=== PATIENT | male | born 1950 | race Caucasian/White ===

== ENCOUNTER 2019-01-27 13:09 | Outpatient (CLI) | payer MEDICARE, BC, SELFPAY ==
--- NOTE | 2019-01-27 13:00 | DI.RAD_ITS ---
SYMPTOMS/DIAGNOSIS: RT SHOULDER PAIN, S/P ROTATOR CUFF REPAIR, M25.511 RIGHT SHOULDER: Multiple views. There are mild hypertrophic changes seen at the acromioclavicular joint and the greater tuberosity. The glenohumeral joint appears well maintained. The bones are intact and normally mineralized. The soft tissues are unremarkable. IMPRESSION: Degenerative changes seen of the right shoulder as described.
== END 2019-01-27 13:29 ==
PROVIDERS: PCP Emergency Medicine; Visit Provider Family Medicine
DX: M25.511 Pain in right shoulder (principal); M19.011 Primary osteoarthritis, right shoulder
CPT/HCPCS: 73030

== ENCOUNTER → 2019-02-18 09:21 | Outpatient (BNVA) | payer MEDICARE, BC, SELFPAY | PROVIDERS: PCP Emergency Medicine; Referring Provider Emergency Medicine; Visit Provider Student in an Organized Health Care Education/Training Program | DX: M25.511 Pain in right shoulder (principal) | CPT/HCPCS: 20610; 99213; 99214; J1040 ==

== ENCOUNTER → 2019-04-06 10:27 | Outpatient (BNVA) | payer MEDICARE, BC, SELFPAY | PROVIDERS: PCP Emergency Medicine; Referring Provider Emergency Medicine; Visit Provider Student in an Organized Health Care Education/Training Program | DX: M75.81 Other shoulder lesions, right shoulder (principal) | CPT/HCPCS: 99212; 99213 ==

== ENCOUNTER → 2019-05-19 13:09 | Outpatient (BNVA) | payer MEDICARE, BC, SELFPAY | PROVIDERS: PCP Emergency Medicine; Visit Provider Nurse Practitioner Primary Care | DX: R55 Syncope and collapse (principal); I44.2 Atrioventricular block, complete; Z45.018 Encounter for adjustment and management of other part of cardiac pacemaker | CPT/HCPCS: 93288; 99203; 99214 ==

== ENCOUNTER 2019-10-20 10:33 | Emergency (ER) | payer MEDICARE, BC, SELFPAY ==
[2019-10-20] VITALS (33 sets, daily range): BP systolic 133–155; BP diastolic 76–94; PULSE 59–76; RESP 0–25; TEMP 37.1; O2SAT 94–98
--- NOTE | 2019-10-20 10:48 | DI.RAD_ITS ---
EXAM: XR CHEST 2V PA LATERAL INDICATION: chest pressure. COMPARISON: CHEST 2 VIEWS PA,LAT from 12/24/2014 XR shoulder RT complete 2+V from 01/27/2019 TECHNIQUE: 2D digital imaging was performed. FINDINGS: The heart size is normal. The pacemaker is now seen. The lungs appear clear. No infiltrate, effus ion or pneumothorax is seen. There are flowing osteophytes in the thoracic spine. No compression fr actures are seen. IMPRESSION: No acute abnormality.
--- NOTE | 2019-10-20 10:48 | W.ED.GENAD ---
Discharge Plan Disposition Patient Disposition: HOME Condition: Good Discharge Details Chief Complaint: Chest Pain Clinical Impression: Chest pain Primary Care Provider: Lusi Krause ED Provider: Jack Sun Home Meds and New Rx's Prescriptions: No Action mupirocin 2 % ointment 1 applic TP TID Qty: 22 RF: 0 vitamin B complex [B-Complex] 1 EACH tablet 1 ea PO DAILY Qty: 1 RF: 0 omega 4-hyu-rkc-fish oil 1 EACH capsule 1 ea PO DAILY Qty: 1 RF: 0 multivitamin [Daily Multi-Vitamin] 1 EACH tablet 1 ea PO 2 x a week RF: 0 aspirin 81 MG tablet,chewable 81 mg PO DAILY RF: 0 cholecalciferol (vitamin D3) [Vitamin D3] 2,000 UNIT capsule 2,000 unit PO DAILY RF: 0 ascorbic acid (vitamin C) [Vitamin C] 500 MG tablet 500 mg PO DAILY RF: 0 lovastatin 20 mg tablet 20 mg PO DAILY Qty: 90 RF: 3 methylphenidate HCl [Ritalin] 10 mg tablet 10 mg PO ONCE MDD 10 mh Qty: 30 RF: 0 Discharge Instructions Instructions: Chest Pain (ED) Additional Instructions: At this time there is no evidence of a heart attack that we can see from our testing. If your symptoms return please take careful note of when they occur, and what seems to bring it up on, including take a careful diary of your food. We will contact your primary care provider to help set up a stress test. If you notice any worsening of your symptoms, or any new symptoms such as vomiting, diarrhea, fever, chills, shortness of breath, chest pain, numbness, weakness, or fainting , please return immediately to the emergency department for reevaluation. Please follow up with your primary care provider as soon as possible for reassessment and reevaluation. As always, it was a pleasure participating in your medical care today. Referrals: Luis Krause, DO [Primary Care Provider] - Medical Decision Making This is a pleasant 69-year-old male with a past medical history of high cholesterol, pacemaker, who takes daily aspirin, who presents today for chest pain. Over the last 2 to 3 months he has had a few episodes of brief 10 seconds of chest pressure which is unrelated to exertion or activity. Symptoms resolve on its own. No pleuritic components. No red flags for PE. No history of cardiac disease. He was seen by his PCP earlier today, EKG was unremarkable aside from normal repolarization. He was sent to the ED for further assessment. Currently the patient remains asymptomatic and has had no current chest pain or shortness of breath. EKG shows mild repolarization which is unchanged from prior EKG in 12/24/2014. Patient also had a normal stress test at the [facility] on 08/27/2018. Review of previous [facility] and [facility] records indicate that he did have sick sinus syndrome in the past with pauses up to 5 seconds which was the reason for his pacemaker. Currently the patient appears clinically well, vital signs are stable. We will perform serial troponins, evaluate for significant cardiac abnormality. No clinical evidence of PE, signs and symptoms clinically inconsistent with dissection. Of note his symptoms may be associated with Textor's twinge/precordial catch syndrome, or alternatively the symptoms that he is feeling is his sick sinus syndrome taking place and then being recovered by his pacemaker. We will evaluate for acute life-threatening abnormality and reassess. 1:13 PM Patient's laboratory work-up has returned, no significant abnormalities. White count normal, CBC normal, electrolytes, renal function, and troponin normal. Chest x-ray unremarkable. proBNP normal. Serial EKGs consistent and unchanged from prior EKGs. Signs and symptoms at this time appear clinically inconsistent with ACS. We are pending serial troponin. Portable limited bedside ultrasound demonstrates good cardiac contractility throughout at this time, no evidence of pericardial effusion or tamponade. 2:12 PM Serial EKG and serial troponins are normal. Patient remains asymptomatic here. Signs and symptoms at this time are clinically inconsistent with ACS. Again I do suspect potential precordial catch syndrome, potentially mild gastritis, versus potential chronic dysrhythmia for which she has a pacemaker. At this time with no syncope, exertional chest pain, EKG changes compared to his chronic EKGs, or other abnormalities in addition to the normal serial troponins I do feel that he is safe for discharge with close follow-up. We will schedule an outpatient exercise stress test. I have contacted Dr. Krause and discussed this with him. Will recommend follow-up with his cardiology clinical consultant on an outpatient basis. I have extensively reviewed the treatment plan and discharge instructions with the patient and their family. I have addressed all patient concerns at this time. The patient and family was made aware of what symptoms to monitor for that would warrant a return to the emergency department. Discussed the plan with the patient and family, they demonstrate verbal understanding and agreement with our assessment and plan at this time. EKG 10: 40 Rate 69, NC 194, QTc 433, QRS 90, sinus rhythm, inverted T waves in V1, normal less than 1 mm of repolarization in the anterior lateral leads, review of prior EKG from earlier today and from 12/24/2014 demonstrates no changes, and consistent findings. EKG 13: 07 Rate 60, intervals normal, sinus rhythm, inverted T wave in V1, placenta millimeter repolarization in the anterior lateral leads. Consistent with prior EKGs both from today and in previous years. No Q waves. No evidence of STEMI. No evidence of delta wave, or epsilon wave. FINDINGS: The heart size is normal. The pacemaker is now seen. The lungs appear clear. No infiltrate, effusion or pneumothorax is seen. There are flowing osteophytes in the thoracic spine. No compression fractures are seen. IMPRESSION: No acute abnormality. HPI General Date/Time Provider Initiated Documentation: 10/20/19 10:36. 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 Patient states that for the last 2 to 3 months he has intermittent chest pain which she describes as a pressure-like sensation. It lasts for 10 seconds, it is in his left chest. He has no syncope associated with these events. They are unchanged and unrelated to exertion or rest. He denies any radiation to the arm neck or shoulders. He denies any tearing sensation. Today with the most recent episode that occurred just while he was driving. He denies any pleuritic chest pain. Denies PE risk factors such as recent long car rides, immobilization, recent surgery, prior history of DVT or PE, family history of PE or DVT, morbid obesity, exogenous estrogen and smoking, hemoptysis, history of cancer. He was seen by his primary care provider Dr. Roberson earlier this morning, EKG was unremarkable aside for normal repolarization. No other abnormalities. After contacting the ED by Dr. Roberson the patient was then transferred here for further assessment evaluation. Upon his arrival to the family doctor's office as well as here he has had no chest pain or other symptoms. Currently he feels well, denies any other complaints. Related Data Home Medications Medication Instructions Recorded Confirmed omega 0-gmy-ogx-fish oil 1 ea PO DAILY #1 07/17/16 10/20/19 vitamin B complex [B Complex] 1 ea PO DAILY #1 07/17/16 10/20/19 aspirin 81 mg PO DAILY tab-cap 01/04/17 10/20/19 cholecalciferol (vitamin D3) 2,000 unit PO DAILY 01/04/17 10/20/19 [Vitamin D3] multivitamin [Multi-Vitamin Daily] 1 ea PO 2 x a week 01/04/17 10/20/19 ascorbic acid (vitamin C) [Vitamin 500 mg PO DAILY 11/26/17 10/20/19 C] mupirocin 2 % topical ointment 1 applic TP TID #22 gm 05/29/19 10/20/19 lovastatin 20 mg tablet 20 mg PO DAILY #90 tab-cap 06/02/19 10/20/19 methylphenidate HCl 10 mg tablet 10 mg PO ONCE #30 tab MDD 10 mh 09/23/19 10/20/19 Previous Rx's Medication Instructions Recorded mupirocin 2 % topical ointment 1 applic TP TID #22 gm 05/29/19 lovastatin 20 mg tablet 20 mg PO DAILY #90 tab-cap 06/02/19 methylphenidate HCl 10 mg tablet 10 mg PO ONCE #30 tab MDD 10 mh 09/23/19 Allergies Allergy/AdvReac Type Severity Reaction Status Date / Time duck feathers Allergy Intermediate Uncoded 10/20/19 10:45 General Stated Complaint: Chest Pain ISIDRO: 2 Review of Systems All systems reviewed & are unremarkable except as noted in HPI and below PFSH Social History Smoking/Tobacco Use Status: Never Alcohol Intake: current Alcohol Intake frequency: holidays/special occasions only Drug use: Never Substance use type: does not use Pets and animals: No Duration: 30-45 minutes/day Frequency: 1-2 times per week Amanda/Druze: [employer] Special amanda needs: No Exam Narrative Exam Narrative: 1.Const: Well-nourished, Well-developed, appearing stated age 2.Eyes: PERRL, no conjunctival injection, and symmetrical lids. 3.ENT: Atraumatic external nose and ears. Moist MM. Neck: Symmetric, trachea midline, No thyromegaly. 4.CVS: +S1/S2, No murmurs or gallops. Peripheral pulses 2+ and equal in all extremities. Brisk capillary refill in all extremities. Pacemaker in place, no redness or tenderness over pacemaker site. No reproducible chest pain. 5.RESP: Unlabored respiratory effort. Clear to auscultation bilaterally. No wheezes rales or rhonchi 6.GI: Soft, Nontender/Nondistended, No hepatosplenomegaly. No guarding or rebound. 7.MSK: Normocephalic/Atraumatic, Extremities w/o deformity or ttp No cyanosis or clubbing, Normal movement of all extremities 8.Skin: Warm, Dry. No rashes or lesions. 9.Neuro: transportation director II-XII grossly intact. Sensation grossly intact, no focal neurologic deficits. 10.Psych: (AAO) x3. Appropriate mood and affect Course Vital Signs Vital signs: Vital Signs Temperature 37.1 C 10/20/19 10:39 Pulse 72 10/20/19 10:39 Respiratory Rate 20 10/20/19 10:39 Blood Pressure 149/85 H 10/20/19 10:39 Pulse Oximetry 98 10/20/19 10:39 Temperature 37.1 C 10/20/19 10:39 Temperature Source Skin 10/20/19 10:39 Pulse 72 10/20/19 10:39 Respiratory Rate 20 10/20/19 10:39 Respiratory Effort Non-Labored 10/20/19 10:46 Blood Pressure 149/85 H 10/20/19 10:39 Blood Pressure Position Sitting 10/20/19 10:39 Pulse Oximetry 98 10/20/19 10:39 Oxygen Delivery Method Room Air 10/20/19 10:39 Oxygen Flow Rate 0 10/20/19 10:39 Pain Level 0 10/20/19 10:39 Lab/Test Results Lab/Test Results: Laboratory Tests Range/Units 10/20/19 10:37 D-Dimer Cancelled
[2019-10-20 10:59] LABS: Abs Immature Grans 0.01 k/cumm (0.0-0.09); Absolute Basophil Count 0.01 k/cumm (0.0-0.2); Absolute Eosinophil Count 0.19 k/cumm (0.0-0.7); Absolute Lymphocyte Count 1.21 k/cumm (1.2-3.4); Absolute Monocyte Count 0.69 k/cumm (0.11-0.7); Absolute Neutrophil Count 4.46 k/cumm (1.2-6.7); Basophils % 0.2; Eosinophils % 2.9; HGB 15.3 g/dL (13.5-17.5); Immature Grans % 0.2; Lymphocytes % 18.4; Mean Corp. HGB Concentration 33.3 g/dL (32.0-36.0); Mean Corpuscular Hemoglobin 29.3 pg (27.0-33.0); Mean Platelet Volume 10.8 fL (8.0-11.0); Monocytes % 10.5; Neutrophils % 67.8; Platelet Count 160 x1000/uL (130-400); RBC 5.23 m/cumm (4.50-6.00); RBC Distribution Width 13.1 % (11.8-14.1); White Blood Cell Count 6.57 k/cumm (4.4-10.8)
[2019-10-20 11:10] LABS: PTT Activated 21.7 sec (21.0-31.4); Prothrombin Time 10.4 sec (9.3-11.0)
[2019-10-20 11:31] LABS: ALT 38 U/L (16-63); AST 22 U/L (15-37); Alkaline Phosphatase 75 U/L (46-116); Anion Gap 6.9 mmol/L (3-11); BUN 14 mg/dL (7-18); Bilirubin, Total 1.1 mg/dL (0.2-1.0); CO2 30.1 mmol/L (21.0-32.0); CREATININE 0.83 mg/dL (0.70-1.30); Calcium 9.1 mg/dL (8.5-10.1); Chloride 103 mmol/L (98-107); Glucose 93 mg/dL (70-100); NT-proBNP 79 pg/mL; Potassium 4.5 mmol/L (3.5-5.1); Sodium 140 mmol/L (136-145); Total Protein 7.3 g/dL (6.4-8.2)
[2019-10-20 11:51] LABS: Troponin I < 0.05 ng/mL (0.00-0.06)
[2019-10-20 14:04] LABS: Troponin I < 0.05 ng/Ml (<0.06)
== END 2019-10-20 14:36 | disposition home or self-care (01) ==
PROVIDERS: Emergency Provider Student in an Organized Health Care Education/Training Program; PCP Emergency Medicine
DX: R07.9 Chest pain, unspecified (principal); Z79.82 Long term (current) use of aspirin; Z95.0 Presence of cardiac pacemaker; Z87.891 Personal history of nicotine dependence
CPT/HCPCS: 36415; 80053; 93005; 96374; 99285; 71046; 83880; 84484; 85025; 85379; 85610; 85730; 93010

== ENCOUNTER 2019-10-27 00:08 | Outpatient (CLI) | payer MEDICARE, BC, SELFPAY ==
--- NOTE | 2019-10-27 06:51 | DI.NM_ITS ---
APPROVED REPORT Exam: Pharmacologic Patient Location: Out-Patient Room/Bed: Stress Nurse: Holly Frederick RN BMI: 2.95 Baseline Rhythm: First Degree Heart Block, minimal ST elevation leads V1, V2, V3, V4; negative T wave in lead V1. Indications: Patient presented to ER on 10/20/19 with intermittent midsternal chest pressure (10 seco nds) with increasing frequency of the last 2 months. He states lately he gets chest pain approximatel y 3 times per week. Chest pain resolves on its own and is unrelated to exertion or activity. Medical History Cardiac Medications: Aspirin, Lovastatin. Allergies: Duck Feathers Cardiac Risk Factors: FHX of CAD, Hyperlipidemia Previous Cardiac Procedures: Pacemaker Exercise History: Physically active Lung Sounds: Clear to auscultation Heart Sounds: Regular Stress Test Details Test: Pharmacologic stress testing performed using 0.4 mg of regadenoson per 5 mL given IV over 10 s econds. Nuclear Acquisition: Stress Tc-99m/Stress Tc-99m 1 day Rest Isotope: Tc-99m Sestamibi. Dose: 10.8 Date: 10/27/2019 Injection Time: 0810 Stress Isotope: Tc-99m Sestamibi. Dose: 30.8 Date: 10/27/2019 Injection Time: 1015 HR Max Heart Rate (APMHR): 150 bpm Resting HR Supine: 68 bpm Target HR (85% APMHR): 127 bpm Max HR Achieved: 93 bpm % of APMHR: 62 HR response to stress: Normal HR response to stress BP Resting BP Supine: 158/96 mmHg Max BP: 160/90 mmHg BP response to stress: Normal blood pressure response to stress. ECG Resting ECst degree AV block ST Change: normal Ectopy: Occasional PVC's Stress ECG: Sinus Rhythm ST Change: none Arrhythmia: none Recovery ECG: Sinus Rhythm Recovery ST Change: none Stress ECG Conclusion 1. There is no evidence of ischemia on the ECG portion of this exam. Protocol Used: Regadenoson Stress Test Summary STAGE HR BP Symptoms NOTES Supine 68 158/96 Standing 1 min 93 160/90 2 min 3 min 91 154/82 Chest pressure 2/10 This is the same pain I had with the last time I had symptoms 4 min 5 min 6 min 79 160/82 7 min 8 min 9 min 10 min 1 min recovery 3 min recovery 6 min recovery MPI Conclusion Ejection fraction with stress was 51%. With attenuation correction there is no significant ischemia on the imaging portion of the exam. This represents a normal SPECT test. Radiologist Interpretation Radiologist agrees with Steel Burner's Interpretation. Radiologist Interpretation by: Renny Lott MD Interpretation Date/Time: 11/03/2019 13:22:27
[2019-10-27] MEDS: Regadenoson 0.4 MG/5 ML SYR IVP (11:07)
== END 2019-10-27 00:28 ==
PROVIDERS: PCP Emergency Medicine; Visit Provider Emergency Medicine
DX: R07.89 Other chest pain (principal); E78.5 Hyperlipidemia, unspecified; I10 Essential (primary) hypertension; Z82.49 Family history of ischemic heart disease and other diseases of the circulatory system
CPT/HCPCS: 78452; 93016; 93018; 93017; J2785

== ENCOUNTER → 2020-05-18 09:24 | Outpatient (BNVA) | payer MEDICARE, BC, SELFPAY | PROVIDERS: PCP Emergency Medicine; Referring Provider Emergency Medicine; Visit Provider Physician Assistant | DX: I49.5 Sick sinus syndrome (principal); Z45.018 Encounter for adjustment and management of other part of cardiac pacemaker | CPT/HCPCS: 93280; 99211; 99213 ==

== ENCOUNTER 2020-08-23 07:41 | Outpatient (REF) | payer MEDICARE, BC, SELFPAY ==
[2020-08-23 13:13] LABS: BUN 13 mg/dL (7-18); CREATININE 0.74 mg/dL (0.70-1.30); Calculated LDL 104 mg/dL (<100); Chloride 105 mmol/L (98-107); Cholesterol 176 mg/dL (<200); Glucose 106 mg/dL (74-106); HDL Cholesterol 65 mg/dL (40-60); Potassium 4.3 mmol/L (3.5-5.1); Sodium 143 mmol/L (136-145); Triglyceride 37 mg/dL (<150)
[2020-08-23 13:14] LABS: Hemoglobin A1C 5.5 % (<5.7)
[2020-08-24 13:44] LABS: PSA, Screening 1.1 ng/mL (0.0-6.5)
== END 2020-08-23 08:01 ==
LOC: LBN 07:41
PROVIDERS: PCP Emergency Medicine; Visit Provider Emergency Medicine
DX: I10 Essential (primary) hypertension (principal); R79.89 Other specified abnormal findings of blood chemistry; Z12.5 Encounter for screening for malignant neoplasm of prostate
CPT/HCPCS: 80048; 80061; 84153; 83036

== ENCOUNTER → 2020-11-16 08:29 | Outpatient (BNVA) | payer MEDICARE, BC, SELFPAY | PROVIDERS: PCP Family Medicine; Referring Provider Emergency Medicine; Visit Provider Physician Assistant | DX: R55 Syncope and collapse (principal); I44.2 Atrioventricular block, complete; Z45.018 Encounter for adjustment and management of other part of cardiac pacemaker | CPT/HCPCS: 93280; 99212 ==

== ENCOUNTER 2021-03-23 10:25 | Emergency (ER) | payer MEDICARE, BC, SELFPAY ==
[2021-03-23] VITALS (25 sets, daily range): BP systolic 107–159; BP diastolic 68–86; PULSE 59–85; RESP 14–23; TEMP 36.6–36.7; O2SAT 95–98
--- NOTE | 2021-03-23 10:15 | RT.EKG_ITS ---
APPROVED REPORT Exam: Resting ECG Patient Location: E HR:76 bpm ECG Measurements Heart Rate 76 AXIS MT 196 P 93 QRSd 137 QRS 77 QT 410 T 49 QTc 445 Conclusion Sinus rhythm...normal P axis, V-rate 60- 99 Right bundle branch block...QRSd>120, terminal axis(90,270) I have reviewed and interpreted ECG and agree with software generated interpretation.
[2021-03-23] MEDS: Normal Saline Flush 10 ML SYR IVP (10:35)
--- NOTE | 2021-03-23 10:37 | W.ED.GENAD ---
Discharge Plan Disposition Patient Disposition: HOME Condition: Improving Discharge Details Clinical Impression: Near syncope, Dehydration Primary Care Provider: Alex Jaquez ED Provider: Janae Cox Home Meds and New Rx's Prescriptions: Continued venlafaxine 75 mg capsule,extended release 24hr 75 mg PO DAILY Qty: 90 RF: 3 losartan 25 mg tablet 25 mg PO DAILY Qty: 90 RF: 3 vitamin B complex [B-Complex] 1 EACH tablet 1 ea PO DAILY Qty: 1 RF: 0 omega 8-eol-zzt-fish oil 1 EACH capsule 1 ea PO DAILY Qty: 1 RF: 0 multivitamin [Daily Multi-Vitamin] 1 EACH tablet 1 ea PO 2 x a week RF: 0 aspirin 81 MG tablet,chewable 81 mg PO DAILY RF: 0 cholecalciferol (vitamin D3) [Vitamin D3] 2,000 UNIT capsule 2,000 unit PO DAILY RF: 0 ascorbic acid (vitamin C) [Vitamin C] 500 MG tablet 500 mg PO DAILY RF: 0 lovastatin 20 mg tablet 20 mg PO DAILY Qty: 90 RF: 3 Discharge Instructions Instructions: Dehydration (ED), Near Syncope (ED) Additional Instructions: Drink plenty of fluids and get plenty of rest. Call your primary care doctor's office tomorrow to schedule a follow-up appointment in the next week. If unable to obtain an appointment, follow up with your scheduled appointment with your primary care doctor on April 11. Also discuss with your primary care doctor's office any recommendations for therapy or medical management of your feelings of anxiety and depression. Return immediately to the emergency department with any worsening or new concerning symptoms. Discharge Data Discharge Physician: Janae Cox Medical Decision Making 70-year-old male with a history of hypertension, depression and pacemaker presents to the ED with a complaint of once weekly near syncopal episode, with a worse episode today that was associated with weakness. Currently asymptomatic. EKG on arrival notes a rate of 76, sinus, right bundle branch block, no STEMI. Blood pressure mildly hypertensive. Remainder vitals within normal limits. Patient appears nontoxic. He has no focal deficits. Patient's pacemaker interrogated at bedside -- since December 02, 2020 - VT greater than 4 beats reported as 7, AT/AF reported as 1, with no observations based on this current interrogation. These findings were discussed with pediatric clinical nurse specialist Dr. Brewer who found that this was unremarkable and reassuring. Labs and imaging reviewed and unremarkable. Orthostats positive with decrease in blood pressure more than 30 points from supine to standing. Patient reassessed and he states he feels much better. Discussed with patient's at home who states that she has also been concerned about patient's anxiety and depression. states that patient had been on antidepressants over 1 month ago but he stopped them. Patient agrees that he has feelings of anxiety and depression but denies any suicidal or homicidal ideation. Patient also states that he has sleep apnea but has not been using his CPAP as directed. Discussed that his presentation today may be associated with his dehydration but also could be related to his untreated sleep apnea, anxiety, depression, etc. He is advised to increase his fluids, get plenty of rest, and follow-up with his primary care doctor for reevaluation of his sleep apnea and to discuss any possible treatment or therapy options of his anxiety and depression. Usual and customary return precautions given prior to discharge. Medical Records Medical records reviewed: Yes I reviewed the patient's medical records. Imaging Data Radiologic Study: Radiologist's impression: CT HEAD WO CLINICAL HISTORY: dizziness, r/o acute disease. TECHNIQUE: Imaging Protocol: Axial computed tomography images with coronal and sagittal reformatted images were created and reviewed COMPARISON: CT HEAD WITHOUT CONTRAST from 11/29/2017 FINDINGS: There are no skull fractures nor fluid in the visualized paranasal sinuses. There is no evidence of intracranial hemorrhage, mass effect, or shift of midline structures. There are no extra-axial fluid collections. The ventricles are not enlarged or shifted and there is no blood within the ventricular system nor within the basal cisterns. IMPRESSION: No acute intracranial findings on this noninfused CT scan of the brain. XR CHEST 2V PA LATERAL CLINICAL HISTORY: near syncope, r/o acute disease. TECHNIQUE: 2D digital imaging was performed. COMPARISON: CR XR CHEST 2V PA LATERAL from 10/20/2019 FINDINGS: Heart size is normal. Bipolar left subclavian pacemaker again noted with position of lead tips unchanged. The mediastinum is not widened. Lungs are clear. No infiltrates nor pleural effusions. No pulmonary edema. No pneumothorax. IMPRESSION: No acute pulmonary findings.Cardiac pacemaker again noted. No pulmonary edema. Lab Data Lab results reviewed: Yes I reviewed the patient's lab results. Labs: Laboratory Tests Range/Units 03/23/21 03/23/21 03/23/21 10:35 10:35 10:35 WBC (4.4-10.8) 10^3/uL 5.68 RBC (4.36-5.78) 10^6/uL 4.73 Hgb (13.5-17.5) g/dL 13.9 Hct (40.0-50.0) % 42.1 MCV (80-95) fL 89.0 MCH (27.0-33.0) pg 29.4 MCHC (32.0-36.0) % 33.0 RDW (11.8-14.1) % 12.7 Plt Count (130-400) 10^3/uL 155 MPV (8.0-11.0) fL 11.5 H Immature Gran % 0.4 Neutrophils % 75.9 Lymphocytes % 14.8 Monocytes % 7.4 Eosinophils % 1.1 Basophils % 0.4 Nucleated RBC % % 0 Absolute Neutrophils (1.2-6.7) 10^3/uL 4.32 Absolute Lymphocytes (1.2-3.4) 10^3/uL 0.84 L Absolute Monocytes (0.1-0.8) 10^3/uL 0.42 Absolute Eosinophils (0.0-0.7) 10^3/uL 0.06 Absolute Basophils (0.0-0.2) 10^3/uL 0.02 PT (9.3-11.0) sec 10.6 INR (0.9-1.1) 1.1 APTT (21.0-27.5) sec 20.3 L Sodium (136-145) mmol/L 143 Potassium (3.5-5.1) mmol/L 4.2 Chloride (98-107) mmol/L 106 Carbon Dioxide (21.0-32.0) mmol/L 31.9 Anion Gap (3-11) mmol/L 5.1 BUN (7-18) mg/dL 16 Creatinine (0.70-1.30) mg/dL 1.0 Estimated GFR/1.73 m2 (mL/min/1.73m2) >= 60.00 Glucose (74-106) mg/dL 115 H Calcium (8.5-10.1) mg/dL 8.9 Magnesium (1.8-2.4) mg/dL 1.9 Total Bilirubin (0.2-1.0) mg/dL 1.2 H AST (15-37) U/L 20 ALT (16-63) U/L 29 Alkaline Phosphatase (46-116) U/L 72 Troponin I (<0.06) ng/mL < 0.05 Total Protein (6.4-8.2) g/dL 6.7 Albumin (3.4-5.0) g/dL 3.8 ECG Data Attestation: I personally reviewed and interpreted this ECG (s) as follows: Interpretation: rate of 76, sinus, RBBB. Multiple PVCs. No STEMI. NH 196. QRS 137. QTc 445. HPI General Mode of arrival: ambulatory. Date/Time Provider Initiated Documentation: 03/23/21 10:25. Limitations to Documentation: no limitations. Information obtained by: patient. HPI Narrative: Patient is a 70-year-old male with a history of hypertension, depression, pacemaker presents to the ED with complaint of intermittent episodes of near syncope for the past 2 months. Patient states occurring once weekly he has episodes where he has a couple seconds of lightheadedness that usually occurs when he is standing or when bending over. He states the episode today was worse and that it was associated with weakness. He states today he was standing talking to his son when he felt a wave of lightheadedness that lasted a few seconds and then resolved. Patient states that he usually drinks 1 cup of coffee in the morning and then 1 cup of soda during the day. He states he does not drink any water during the day. He states he had caffeinated coffee this morning. He currently denies any symptoms. Patient denies any headache, blurry vision, nausea, vomiting, diarrhea, chest pain, shortness of breath or palpitations with these episodes. He denies any recent travel, recent known exposure to coronavirus, new medications or change in his dosing of his regular medications. Patient states he called his primary care doctor and advised to come to the emergency department for evaluation considering his history of pacemaker. Patient also states that he has a monitor to evaluate his pacemaker at home but states it is broken and he is unsure how to use a new monitor that was sent to him. He states his is calling the company for instructions. Related Data Home Medications Medication Instructions Recorded Confirmed omega 7-yek-qxu-fish oil 1 ea PO DAILY #1 07/17/16 12/09/20 vitamin B complex [B-Complex] 1 ea PO DAILY #1 07/17/16 12/09/20 aspirin 81 mg PO DAILY tab-cap 01/04/17 12/09/20 cholecalciferol (vitamin D3) 2,000 unit PO DAILY 01/04/17 12/09/20 [Vitamin D3] multivitamin [Daily Multi-Vitamin] 1 ea PO 2 x a week 01/04/17 12/09/20 ascorbic acid (vitamin C) [Vitamin 500 mg PO DAILY 11/26/17 12/09/20 C] lovastatin 20 mg tablet 20 mg PO DAILY #90 tab-cap 06/07/20 12/09/20 venlafaxine 75 mg capsule,extended 75 mg PO DAILY #90 cap 12/09/20 12/09/20 release 24 hr losartan 25 mg tablet 25 mg PO DAILY #90 tab 01/06/21 01/06/21 Previous Rx's Medication Instructions Recorded lovastatin 20 mg tablet 20 mg PO DAILY #90 tab-cap 06/07/20 venlafaxine 75 mg capsule,extended 75 mg PO DAILY #90 cap 12/09/20 release 24 hr losartan 25 mg tablet 25 mg PO DAILY #90 tab 01/06/21 Allergies Allergy/AdvReac Type Severity Reaction Status Date / Time venlafaxine AdvReac Severe suicidal Verified 01/06/21 11:30 duck feathers Allergy Intermediate Uncoded 01/06/21 10:43 General Stated Complaint: Dizzy/Sync ISIDRO: 2 Review of Systems All systems reviewed & are unremarkable except as noted in HPI and below Constitutional Constitutional: Reports as per HPI, Denies chills, Denies fever(s) and Reports weakness Eyes Eyes: Denies blurry vision ENT Ears, Nose, Mouth, and Throat: Reports dizziness, Denies sore throat and Denies throat swelling Cardiovascular Cardiovascular: Denies chest pain and Denies dyspnea Respiratory Respiratory: Denies cough and Denies dyspnea Gastrointestinal Gastrointestinal: Denies abdominal pain, Denies diarrhea and Denies vomiting Genitourinary Genitourinary: Denies hematuria and Denies dysuria Musculoskeletal Musculoskeletal: Denies back pain and Denies numbness Integumentary/Breasts Skin/Breast: Denies lesions and Denies rash Neurologic Neurologic: Reports dizziness, Denies localized weakness, Denies numbness and Reports weakness Allergic/Immunologic Allergic/Immunologic: Denies throat swelling [facility] Medical History Presence of cardiac pacemaker [employer] with His-bundle RV dual lead pacer known elevated threshold Surgical History Colonoscopy - IV Sedation (08/08/10) normal Family History Mother Diabetes Father Heart disease Sister No problems noted. Brother Heart disease Brother Heart disease Brother Heart disease Brother No problems noted. Son No problems noted. Son No problems noted. Daughter No problems noted. Daughter No problems noted. Social History Smoking/Tobacco Use Status: Never Smoking risk assessment performed?: Yes Alcohol Intake: current Alcohol Intake frequency: holidays/special occasions only Drug use: Never Substance use type: does not use Pets and animals: No Duration: 30-45 minutes/day Frequency: 1-2 times per week Amanda/P[employer]alism: Jew Special amanda needs: No Do you feel safe at home: Yes Do you feel safe in your relationship?: Yes Exam Const General: cooperative and no acute distress HENMT Head: normal to inspection Face and sinus: normal facial exam Eyes General: appearance normal, both eyes and all related structures Pupils: PERRL EOM: EOM intact bilaterally Neck Neck: normal visual inspection and No submandibular swelling Lymphatic: no lymphadenopathy noted Chest Chest: normal inspection of the chest and no tenderness Resp Effort & Inspection: normal respiratory effort and able to speak in complete sentences Auscultation: clear to auscultation bilaterally Cardio Rate: regular rate Rhythm: regular rhythm GI Inspection: normal to inspection Palpation: soft, not firm, not rigid and nontender Auscultation: normal bowel sounds Skin General skin exam: no rashes or lesions noted Neuro General: patient alert, patient awake and patient oriented x3 Cranial Nerves: CN's II-XI intact bilaterally Cognition: normal cognition Speech: speech normal Motor: muscle tone normal throughout Sensory Exam: no sensory deficits noted Extrem General: normal to inspection, full ROM, capillary refill normal, no calf tenderness bilaterally and no edema Psych Appearance: grossly normal Mental Status: mental status grossly normal Speech and Movement: speech and movement normal Affect: normal affect Course Vital Signs Vital signs: Vital Signs Temperature 97.9 F 03/23/21 10:31 Pulse 74 03/23/21 10:31 Respiratory Rate 16 03/23/21 10:31 Blood Pressure 156/85 H 03/23/21 10:31 Pulse Oximetry 97 03/23/21 10:31 Temperature 97.9 F 03/23/21 10:31 Temperature Source Temporal Artery Scan 03/23/21 10:31 Pulse 74 03/23/21 10:31 Respiratory Rate 16 03/23/21 10:31 Blood Pressure 156/85 H 03/23/21 10:31 Blood Pressure Position Supine 03/23/21 10:31 Pulse Oximetry 97 03/23/21 10:31 Oxygen Delivery Method Room Air 03/23/21 10:31 Oxygen Flow Rate 0 03/23/21 10:31 Pain Level 0 03/23/21 10:31
--- NOTE | 2021-03-23 11:00 | DI.RAD_ITS ---
EXAM: XR CHEST 2V PA LATERAL CLINICAL HISTORY: near syncope, r/o acute disease. TECHNIQUE: 2D digital imaging was performed. COMPARISON: CR XR CHEST 2V PA LATERAL from 10/20/2019 FINDINGS: Heart size is normal. Bipolar left subclavian pacemaker again noted with position of lead tips uncha nged. The mediastinum is not widened. Lungs are clear. No infiltrates nor pleural effusions. No pulmonary edema. No pneumothorax. IMPRESSION: No acute pulmonary findings.Cardiac pacemaker again noted. No pulmonary edema. DATA REPOSITORY: RADIATION DOSE DELIVERED:
[2021-03-23 11:07] LABS: Abs Immature Grans 0.02 10^3/uL (0.0-0.06); Absolute Basophil Count 0.02 10^3/uL (0.0-0.2); Absolute Eosinophil Count 0.06 10^3/uL (0.0-0.7); Absolute Lymphocyte Count 0.84 10^3/uL (1.2-3.4); Absolute Monocyte Count 0.42 10^3/uL (0.1-0.8); Absolute Neutrophil Count 4.32 10^3/uL (1.2-6.7); Basophils % 0.4; Eosinophils % 1.1; HCT 42.1 % (40.0-50.0); HGB 13.9 g/dL (13.5-17.5); Immature Grans % 0.4; Lymphocytes % 14.8; MCH 29.4 pg (27.0-33.0); MPV 11.5 fL (8.0-11.0); Monocytes % 7.4; Neutrophils % 75.9; Nucleated RBC 0 %; Platelet Count 155 10^3/uL (130-400); RBC 4.73 10^6/uL (4.36-5.78); RDW 12.7 % (11.8-14.1); RDW-SD 42.2 fL; WBC 5.68 10^3/uL (4.4-10.8)
--- NOTE | 2021-03-23 11:15 | DI.CT_ITS ---
EXAM: CT HEAD WO CLINICAL HISTORY: dizziness, r/o acute disease. TECHNIQUE: Imaging Protocol: Axial computed tomography images with coronal and sagittal reformatted images were created and reviewed COMPARISON: CT HEAD WITHOUT CONTRAST from 11/29/2017 FINDINGS: There are no skull fractures nor fluid in the visualized paranasal sinuses. There is no evidence of intracranial hemorrhage, mass effect, or shift of midline structures. There are no extra-axial fluid collections. The ventricles are not enlarged or shifted and there is no blo od within the ventricular system nor within the basal cisterns. IMPRESSION: No acute intracranial findings on this noninfused CT scan of the brain. RADIATION DOSE DELIVERED: 806.03mGy.cm Total DLP DATA REPOSITORY: All CT scans at this facility are submitted to the National Radiology Data Registry (NRDR) Dose Index Registry (DIR) with the [employer] ([employer]). RADIATION OPTIMIZATION: All CT scans at this facility use at least one of these dose optimization te chniques: automated exposure control; mA and/or kV adjustment per patient size (includes targeted exa ms where dose is matched to clinical indication); or iterative reconstruction.
[2021-03-23 11:17] LABS: INR 1.1 (0.9-1.1); PTT Activated 20.3 sec (21.0-27.5); Prothrombin Time 10.6 sec (9.3-11.0)
[2021-03-23 11:28] LABS: ALT 29 U/L (16-63); AST 20 U/L (15-37); Albumin 3.8 g/dL (3.4-5.0); Alkaline Phosphatase 72 U/L (46-116); Anion Gap 5.1 mmol/L (3-11); BUN 16 mg/dL (7-18); Bilirubin, Total 1.2 mg/dL (0.2-1.0); CO2 31.9 mmol/L (21.0-32.0); Calcium 8.9 mg/dL (8.5-10.1); Chloride 106 mmol/L (98-107); Glucose 115 mg/dL (74-106); Magnesium 1.9 mg/dL (1.8-2.4); Potassium 4.2 mmol/L (3.5-5.1); Sodium 143 mmol/L (136-145); Total Protein 6.7 g/dL (6.4-8.2); Troponin I < 0.05 ng/mL (<0.06)
[2021-03-23] MEDS: Normal Saline 500 ML IV ×2 (12:02→12:03)
== END 2021-03-23 14:50 | disposition home or self-care (01) ==
PROVIDERS: Emergency Provider Physician Assistant; PCP Family Medicine
DX: R55 Syncope and collapse (principal); E86.0 Dehydration
CPT/HCPCS: 80053; 93005; 96360; 96361; 99285; 70450; 71046; 83735; 84484; 85025; 85610; 85730; 93010; 99284

== ENCOUNTER → 2021-06-21 09:17 | Outpatient (BNVA) | payer MEDICARE, BC, SELFPAY | PROVIDERS: PCP Family Medicine; Referring Provider Family Medicine; Visit Provider Physician Assistant | DX: R55 Syncope and collapse (principal); F34.1 Dysthymic disorder; R07.9 Chest pain, unspecified; Z45.018 Encounter for adjustment and management of other part of cardiac pacemaker | CPT/HCPCS: 93280; 99213 ==

== ENCOUNTER → 2021-07-25 10:21 | Outpatient (BNVA) | payer MEDICARE, BC, SELFPAY | PROVIDERS: PCP Family Medicine; Referring Provider Family Medicine; Visit Provider Internal Medicine Cardiovascular Disease | DX: R55 Syncope and collapse (principal); Z95.0 Presence of cardiac pacemaker; I10 Essential (primary) hypertension; R42 Dizziness and giddiness | CPT/HCPCS: 99214; 99213 ==

== ENCOUNTER → 2022-01-10 08:12 | Outpatient (BNVA) | payer MEDICARE, BC, SELFPAY | PROVIDERS: PCP Family Medicine; Referring Provider Family Medicine; Visit Provider Physician Assistant | DX: Z95.0 Presence of cardiac pacemaker (principal); R55 Syncope and collapse | CPT/HCPCS: 93280; 99211 ==

== ENCOUNTER 2022-02-05 08:52 | Emergency (ER) | payer MEDICARE, BC, SELFPAY ==
[2022-02-05] VITALS (42 sets, daily range): BP systolic 142–163; BP diastolic 69–99; PULSE 60–80; RESP 12–22; TEMP 36.6–37.2; O2SAT 94–98
--- NOTE | 2022-02-05 08:45 | RT.EKG_ITS ---
APPROVED REPORT Exam: Resting ECG Reason for Exam: dizziness Patient Location: E HR:82 bpm ECG Measurements Heart Rate 82 AXIS NE 202 P 68 QRSd 134 QRS 68 QT 393 T 48 QTc 448 Conclusion Sinus rhythm...normal P axis, V-rate 60- 99 Atrial premature complexes...SV complexes w/ short R-R intvls Right bundle branch block...QRSd>120, terminal axis(90,270) sinus rhythm at 82 with PACs, right bundle branch block, normal axis, no STEMI, nondiagnostic EKG
--- NOTE | 2022-02-05 09:45 | ED.GENADUL_ITS ---
Discharge Plan Disposition Patient Disposition: HOME Condition: Good Discharge Details Clinical Impression: Vertigo, Light-headed Primary Care Provider: Alex Jaquez ED Provider: Lisa Cohen Home Meds and New Rx's Prescriptions: Continued aspirin [Adult Low Dose Aspirin] 81 mg tablet,delayed release (DR/EC) 81 mg PO DAILY 0RF lovastatin 20 mg tablet 20 mg PO DAILY Qty: 90 3RF lorazepam 1 mg tablet 1 mg PO DAILY PRN (Reason: anxiety) Qty: 1 0RF Rx Instructions: take 30 mins prior to MRI cholecalciferol (vitamin D3) 125 mcg (5,000 unit) capsule 125 mcg PO DAILY 0RF omega 7-wal-fne-fish oil 1 EACH capsule 1 ea PO DAILY Qty: 1 0RF cholecalciferol (vitamin D3) [Vitamin D3] 2,000 UNIT capsule 2,000 unit PO DAILY 0RF ascorbic acid (vitamin C) [Vitamin C] 500 MG tablet 500 mg PO DAILY 0RF losartan 25 mg tablet 25 mg PO DAILY Qty: 90 3RF Discharge Instructions Instructions: Vertigo (ED), Lightheadedness (ED) Additional Instructions: Please return immediately to the emergency department if you develop any new or worsening symptoms, if your condition does not improve as expected, or if you become otherwise concerned. It is extremely important that you call soon as possible to make an appointment to be seen in follow-up for this visit by your primary care doctor and that you follow-up with your neurologist as scheduled on 02/07/2022. Referrals: Alex Jaquez MD [Primary Care Provider] - Discharge Data Discharge Date/Time-TO BE ENTERED AT DEPARTURE: 02/05/22 15:04 Medical Decision Making Bishop Smyth is a 71-year-old man with a history of hypertension, complete heart block status post cardiac pacemaker, TIA presenting to the emergency department with vertigo. Patient states that he had episode of lightheadedness this morning, however when questioned further states that he did not feel that he was going to pass out and described sensations more credit and collections representative of vertigo: Patient reports that he woke up around 6:00, and approximately 30 minutes later developed a sensation of loss of balance and a vague spinning sensation. Patient reports that this made him quite anxious, and he began pacing back and forth. Patient reports that he felt as if he had some difficulty walking due to symptoms during this. Patient reports that episode lasted approximately 45 minutes. Patient reports that he did not sit down or lie down during this episode. He reports that symptoms resolved spontaneously. Patient reports he has never had similar symptoms in the past. Patient reports that he has had some positional chest pain that has been ongoing for months yesterday, there was no change from baseline, otherwise he denies any pain today or recent pain. Denies fevers, cough, shortness of breath, vomiting, diarrhea, rash, weakness. Patient reports that during episode this morning he did have a sensation of numbness in his bilateral cheeks, which he reports he has had in the past. Now resolved. He denies any ear pain, hearing changes. He reports chronic tinnitus which is unchanged. On exam patient is well and nontoxic-appearing. TMs not visualized due to cerumen. Nonfocal neurologic exam. Concern for peripheral versus central vertigo, doubt lightheadedness/presyncope as patient reports that he paced for 45 minutes during episode and never had sensation to sit down to rest, however will interrogate pacer, obtain troponin, D-dimer out of abundance of caution. EKG obtained and nondiagnostic. Plan for screening labs, IV placement, telemetry. Patient cannot undergo MRI/MRA for rule out posterior circulation CVA given pacemaker in place. I discussed alternatives with radiology who recommended CT/CTA. Exam/history at this time is not consistent with sepsis, acute aortic pathology, meningitis, subarachnoid hemorrhage. Pacer interrogated, no major arrhythmia noted. 10:40 patient reported sharp chest pain, plan for EKG. EKG unrevealing, patient reports chest pain has resolved within 2-3 minutes, reports that this is characteristic of his typical positional chest pain that he has been having for months. CTA resulted no significant carotid stenosis, no acute process. Patient reports feeling improved. I discussed patient with his over the phone. Patient's states that patient has had multiple similar events over the past year, and is being seen by neurology for these episodes. Patient's reports that episode this morning did not seem to similar to her for multiple prior episodes in the past. Given overall clinical picture and this historical information, do not suspect TIA, will hold Plavix, outpatient MRI pending scheduled neurology appointment 02/07/2022. I had a discussion with Patient's and with Pt regarding return to emergency department precautions, home care, and importance of outpatient follow-up. Pt and his verbalize understanding of the plan and are amenable. Patient discharged to home with clear plan for outpatient follow- up. All questions were answered. Disposition decision was made weighing the risks and benefits of hospitalization versus outpatient treatment, the risk for further decompensation, and the patient's wishes. Medical Records Medical records reviewed: Yes I reviewed the patient's medical records. Imaging Data Radiologic Study: Attestation: I personally reviewed and interpreted this imaging study as follows: Radiologist's impression: EXAM: ? CT BRAIN ? NECK CTA CLINICAL HISTORY: ? vertigo. ? TECHNIQUE:? Imaging Protocol:? Axial CT angiography was performed with multi- slice acquisition and multi-planar and/or 3D reconstructions. CONTRAST MATERIAL:? Intravenous: Omnipaque 350 Contrast volume: 85 cc COMPARISON:? CT CT HEAD WO from 03/23/2021 FINDINGS: CT Head W/O and W contrast: Ventricles and Extra axial spaces: Normal in size and morphology for the patient's age. Hemorrhage: None. Cerebral parenchyma: Normal. Midline shift: None. Brainstem/Cerebellum: Normal. Calvarium: Normal. Visualized Paranasal sinuses/Mastoids: Mild mucous retention floors of the maxillary sinuses and ethmoid mucosal thickening.? Mastoid air cells are clear.? Internal and external auditory canals are unremarkable.? Soft Tissues: Unremarkable. Enhancement: Normal. CTA Brain W: Internal Carotid Arteries: Petrous: Normal. Cavernous: Normal. Cerebral: Normal. Middle Cerebral Arteries: Right:? No aneurysm, occlusion or significant stenosis. Left:? No aneurysm, occlusion or significant stenosis. Anterior Cerebral Arteries: Right:? No aneurysm, occlusion or significant stenosis. Left:? No aneurysm, occlusion or significant stenosis. Posterior cerebral Arteries: Right:? No aneurysm, occlusion or significant stenosis. Left:? No aneurysm, occlusion or significant stenosis. Vertebral Arteries: Right:? No aneurysm, occlusion or significant stenosis. Left:? No aneurysm, occlusion or significant stenosis. Basilar Artery:? No aneurysm, occlusion or significant stenosis. CTA Neck W: Common Carotid: Right:? No aneurysm, occlusion or significant stenosis. Left:? No aneurysm, occlusion or significant stenosis. Minimal calcific plaque at the common carotid bulb. External Carotid: Right:? No aneurysm, occlusion or significant stenosis. Left:? No aneurysm, occlusion or significant stenosis. Internal Carotid: Right:? No aneurysm, occlusion or significant stenosis. Left:? No aneurysm, occlusion or significant stenosis. Vertebral Artery: Right:? No aneurysm, occlusion or significant stenosis. Left:? No aneurysm, occlusion or significant stenosis. Lung Apices: Normal. Bones: Degenerative disc changes. Soft Tissues: Normal. IMPRESSION: 1. Normal CTA examination of the [place]. 2. Unremarkable CT Head. Mild sinus disease. 3. Minimal plaque at the left common carotid bulb , otherwise normal CTA examination of the neck.? Lab Data Lab results reviewed: Yes I reviewed the patient's lab results. Labs: Laboratory Tests Range/Units 02/05/22 02/05/22 02/05/22 09:57 09:57 09:57 WBC (4.4-10.8) 10^3/uL 5.50 RBC (4.36-5.78) 10^6/uL 4.69 Hgb (13.5-17.5) g/dL 13.6 Hct (40.0-50.0) % 41.5 MCV (80-95) fL 88.5 MCH (27.0-33.0) pg 29.0 MCHC (32.0-36.0) % 32.8 RDW (11.8-14.1) % 12.6 Plt Count (130-400) 10^3/uL 152 MPV (8.0-11.0) fL 11.1 H Immature Gran % 0.4 Neutrophils % 73.4 Lymphocytes % 14.7 Monocytes % 9.6 Eosinophils % 1.5 Basophils % 0.4 Nucleated RBC % % 0 Absolute Neutrophils (1.2-6.7) 10^3/uL 4.04 Absolute Lymphocytes (1.2-3.4) 10^3/uL 0.81 L Absolute Monocytes (0.1-0.8) 10^3/uL 0.53 Absolute Eosinophils (0.0-0.7) 10^3/uL 0.08 Absolute Basophils (0.0-0.2) 10^3/uL 0.02 D-Dimer (<500) ng/mlFEU Sodium (136-145) mmol/L 143 Potassium (3.5-5.1) mmol/L 4.5 Chloride (98-107) mmol/L 106 Carbon Dioxide (21.0-32.0) mmol/L 30.8 Anion Gap (3-11) mmol/L 6.2 BUN (7-18) mg/dL 11 Creatinine (0.70-1.30) mg/dL 0.8 Estimated GFR/1.73 m2 (mL/min/1.73m2) >= 60.00 Glucose (74-106) mg/dL 118 H Calcium (8.5-10.1) mg/dL 9.0 Magnesium (1.8-2.4) mg/dL 2.1 Total Bilirubin (0.2-1.0) mg/dL 0.9 AST (15-37) U/L 19 ALT (16-63) U/L 24 Alkaline Phosphatase (46-116) U/L 66 Troponin I (<or=60) ng/L < 50 Total Protein (6.4-8.2) g/dL 6.8 Albumin (3.4-5.0) g/dL 3.7 TSH (0.36-3.74) uIU/mL 0.45 Range/Units 02/05/22 02/05/22 09:57 12:58 WBC (4.4-10.8) 10^3/uL RBC (4.36-5.78) 10^6/uL Hgb (13.5-17.5) g/dL Hct (40.0-50.0) % MCV (80-95) fL MCH (27.0-33.0) pg MCHC (32.0-36.0) % RDW (11.8-14.1) % Plt Count (130-400) 10^3/uL MPV (8.0-11.0) fL Immature Gran % Neutrophils % Lymphocytes % Monocytes % Eosinophils % Basophils % Nucleated RBC % % Absolute Neutrophils (1.2-6.7) 10^3/uL Absolute Lymphocytes (1.2-3.4) 10^3/uL Absolute Monocytes (0.1-0.8) 10^3/uL Absolute Eosinophils (0.0-0.7) 10^3/uL Absolute Basophils (0.0-0.2) 10^3/uL D-Dimer (<500) ng/mlFEU 401 Sodium (136-145) mmol/L Potassium (3.5-5.1) mmol/L Chloride (98-107) mmol/L Carbon Dioxide (21.0-32.0) mmol/L Anion Gap (3-11) mmol/L BUN (7-18) mg/dL Creatinine (0.70-1.30) mg/dL Estimated GFR/1.73 m2 (mL/min/1.73m2) Glucose (74-106) mg/dL Calcium (8.5-10.1) mg/dL Magnesium (1.8-2.4) mg/dL Total Bilirubin (0.2-1.0) mg/dL AST (15-37) U/L ALT (16-63) U/L Alkaline Phosphatase (46-116) U/L Troponin I (<or=60) ng/L < 50 Total Protein (6.4-8.2) g/dL Albumin (3.4-5.0) g/dL TSH (0.36-3.74) uIU/mL ECG Data Attestation: I personally reviewed and interpreted this ECG (s) as follows: Interpretation: EKG shows sinus rhythm at 82 with PACs, right bundle branch block, normal axis, no STEMI, nondiagnostic EKG EKG 10: 41 shows sinus rhythm at 76, normal axis, no major change from prior, nondiagnostic EKG HPI General Date/Time Provider Initiated Documentation: 02/05/22 09:09 . HPI Narrative: Bishop Smyth is a 71-year-old man with a history of hypertension, complete heart block status post cardiac pacemaker, TIA presenting to the emergency department with vertigo. Patient states that he had episode of lightheadedness this morning, however when questioned further states that he did not feel that he was going to pass out and described sensations more credit and collections representative of vertigo: Patient reports that he woke up around 6:00, and approximately 30 minutes later developed a sensation of loss of balance and a vague spinning sensation. Patient reports that this made him quite anxious, and he began pacing back and forth. Patient reports that he felt as if he had some difficulty walking due to symptoms during this. Patient reports that episode lasted approximately 45 minutes. Patient reports that he did not sit down or lie down during this episode. He reports that symptoms resolved spontaneously. Patient reports he has never had similar symptoms in the past. Patient reports that he has had some positional chest pain that has been ongoing for months ye sterday, there was no change from baseline, otherwise he denies any pain today or recent pain. Denies fevers, cough, shortness of breath, vomiting, diarrhea, rash, weakness. Patient reports that during episode this morning he did have a sensation of numbness in his bilateral cheeks, which he reports he has had in the past. Now resolved. He denies any ear pain, hearing changes. He reports chronic tinnitus which is unchanged. I spoke with patient's on the phone who reports that patient has neurology appointment 02/07/2022 for dementia, she reports that Pt's neurologist is concerned for possible Lewy body dementia. Related Data Home Medications Medication Instructions Recorded Confirmed omega 2-lrl-ckn-fish oil 500 mg 1 ea PO DAILY #1 07/17/16 02/05/22 (200mg-300mg)-1,000 mg capsule cholecalciferol (vitamin D3) 50 2,000 unit PO DAILY 01/04/17 02/05/22 mcg (2,000 unit) capsule (Vitamin D3) ascorbic acid (vitamin C) 500 mg 500 mg PO DAILY 11/26/17 02/05/22 tablet (Vitamin C) lovastatin 20 mg tablet 20 mg PO DAILY #90 tab-cap 05/12/21 02/05/22 aspirin 81 mg tablet,delayed 81 mg PO DAILY 06/21/21 02/05/22 release (Adult Low Dose Aspirin) cholecalciferol (vitamin D3) 125 125 mcg PO DAILY 07/25/21 02/05/22 mcg (5,000 unit) capsule lorazepam 1 mg tablet 1 mg PO DAILY PRN #1 tab 09/08/21 02/05/22 losartan 25 mg tablet 25 mg PO DAILY #90 tab 02/02/22 02/05/22 Previous Rx's Medication Instructions Recorded lovastatin 20 mg tablet 20 mg PO DAILY #90 tab-cap 05/12/21 lorazepam 1 mg tablet 1 mg PO DAILY PRN #1 tab 09/08/21 losartan 25 mg tablet 25 mg PO DAILY #90 tab 02/02/22 Allergies Allergy/AdvReac Type Severity Reaction Status Date / Time venlafaxine AdvReac Severe suicidal Verified 02/05/22 09:02 duck feathers Allergy Intermediate Uncoded 02/05/22 09:02 General Stated Complaint: Dizzy/Sync ISIDRO: 3 Review of Systems Narrative: Constitutional: denies fevers Eyes: denies eye pain ENT: denies ear pain, dental pain, sore throat Cardiovascular: denies edema, lightheadedness, report chronic intermittent positional chest pain that is unchanged and not currently occurring Respiratory: denies SOB, cough GI: denies abdominal pain, vomiting, diarrhea : denies flank pain MSK: denies back pain, neck pain, arthralgias, myalgias Skin: denies rash Neuro: denies headaches, numbness, weakness, reports vertigo PFSH All Active Problems (Updated 02/05/22 @ 14:45 by Lisa Cohen MD) Vertigo (Acute) Dementia (Chronic) Light-headed (Acute) Phlegm in throat (Acute) Anxiety disorder (Acute) Depression (Chronic) Near syncope (Acute) Dehydration (Acute) Bilateral shoulder pain (Acute) Essential hypertension (Acute) Presence of cardiac pacemaker (Acute) [employer] with His-bundle RV dual lead pacer known elevated threshold Dysthymia (Acute) Right rotator cuff tendonitis (Acute) Injected 02/18/2019 Transient cerebral ischemia (Chronic) Tinnitus (Chronic 09/29/13) Sleep apnea (Chronic 01/03/18) CPAP Osteoarthritis of thumbs, 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) History of tobacco use (Chronic) Depressive disorder (Chronic) Chest pain (Chronic) 03/11 MPI: NEG FOR ISCHEMIA Repeat MPI 12/15 neg also Carpal tunnel syndrome (Chronic 09/29/13) surgery Cardiac syncope (Chronic 07/23/18) [facility] Surgical History Colonoscopy - IV Sedation (08/08/10) normal Family History Mother Diabetes Father Heart disease Brother Heart disease Brother Heart disease Brother Heart disease Social History Smoking/Tobacco Use Status: Never Second Hand Exposure: No Smoking risk assessment performed?: Yes Alcohol Intake: current Alcohol Intake frequency: holidays/special occasions only Alcohol type: beer and hard liquor Drug use: Never Substance use type: does not use Household members: spouse Housing: house Communication Needs: None Do you need help understanding health information?: Often Pets and animals: No Do you think of yourself as: straight/heterosexual Current gender identity: male What is your relationship status?: How often do you talk on the phone with friends or family?: once per week How often do you get together with friends or relatives?: once per week How often do you attend jain or yazdanism services?: 4 or more times per year Do you belong to any clubs or organized social groups?: no Panel score (0-1 are the most socially isolated patients): 2 What type of physical activity do you participate in: none Amanda/Jainism: Adventism Special amanda needs: No Seatbelt use: always Helmet use: No Drive intox or ride w/intox class b driver: No Do you feel safe at home: Yes Do you feel safe in your relationship?: Yes Exam Narrative Exam Narrative: Constitutional: well and [id number], pleasant, conversing normally HENT: head atraumatic/normocephalic/normal inspection, mucous membranes moist, bilateral external ears normal, TMs not visualized bilaterally due to cerumen, visualized portions of canals bilaterally with normal inspection Eyes: conjunctiva normal, sclera normal, pupils 3mm b/l Neck: no stridor, normal ROM, trachea midline Chest: normal inspection Resp: normal work of breathing, speaking in full sentences Cardio: normal rate, normal rhythm GI: abdomen soft, non-tender, non-distended Back: normal inspection, no rash Skin: warm, dry, normal color, no rash Neuro: alert, not altered, cranial nerves II through XII intact, motor 5 out of 5 throughout all extremities, finger-nose intact bilaterally, [id number] intact bilaterally, negative Romberg, no pronator drift, normal gait, normal tone Ext: no edema, moving all extremities equally Psych: normal mood, normal affect, normal behavior Course Vital Signs Vital signs: Vital Signs Temperature 36.6 C 02/05/22 08:58 Pulse 80 02/05/22 08:58 Respiratory Rate 14 02/05/22 08:58 Blood Pressure 154/75 H 02/05/22 08:58 Pulse Oximetry 95 02/05/22 08:58 Temperature 36.6 C 02/05/22 08:58 Temperature Source Temporal Artery Scan 02/05/22 08:58 Pulse 80 03/07/22 08:58 Respiratory Rate 14 02/05/22 09:03 Respiratory Effort Non-Labored 02/05/22 09:03 Respiratory Depth Normal 02/05/22 09:03 Respiratory Pattern Normal 02/05/22 09:03 Blood Pressure 154/75 H 02/05/22 08:58 Blood Pressure Position Sitting 02/05/22 08:58 Pulse Oximetry 95 02/05/22 08:58 Oxygen Delivery Method Room Air 02/05/22 08:58 Oxygen Flow Rate 0 02/05/22 08:58 Pain Level 0 02/05/22 08:58 PAWSS Have you Been Recently Intoxicated or Drunk Within the Last 30 days?: No Have you Ever Experienced Previous Episodes of Alcohol Withdrawal?: No Have you ever Experienced Withdrawal Seizures?: No Have you ever Experienced Delirium Tremens(DT)s?: No Have you ever undergone Alcohol Rehabilitation Treatment (i.e, inpt ot outpatient treatment programs)?: No Have you ever Experienced Blackouts?: No Have you ever Combined Alcohol with other Downers within the last 90 days?: No Have you ever Combined Alcohol with any other Substance of Abuse during the last 90 days?: No Positive Blood Alcohol level on Presentation? [PCS.BAL]: No Evidence of Increased Autonomic Activity (i.e. HR>120, tremor, sweating, agitation, nausea)?: No Result: 0
--- NOTE | 2022-02-05 10:00 | DI.CT_ITS ---
Exam(s) CT BRAIN NECK CTA EXAM: CT BRAIN NECK CTA CLINICAL HISTORY: vertigo. TECHNIQUE: Imaging Protocol: Axial CT angiography was performed with multi-slice acquisition and mu lti-planar and/or 3D reconstructions. CONTRAST MATERIAL: Intravenous: Omnipaque 350 Contrast volume: 85 cc COMPARISON: CT CT HEAD WO from 03/23/2021 FINDINGS: CT Head W/O and W contrast: Ventricles and Extra axial spaces: Normal in size and morphology for the patient's age. Hemorrhage: None. Cerebral parenchyma: Normal. Midline shift: None. Brainstem/Cerebellum: Normal. Calvarium: Normal. Visualized Paranasal sinuses/Mastoids: Mild mucous retention floors of the maxillary sinuses and ethm oid mucosal thickening. Mastoid air cells are clear. Internal and external auditory canals are unre markable. Soft Tissues: Unremarkable. Enhancement: Normal. CTA Brain W: Internal Carotid Arteries: Petrous: Normal. Cavernous: Normal. Cerebral: Normal. Middle Cerebral Arteries: Right: No aneurysm, occlusion or significant stenosis. Left: No aneurysm, occlusion or significant stenosis. Anterior Cerebral Arteries: Right: No aneurysm, occlusion or significant stenosis. Left: No aneurysm, occlusion or significant stenosis. Posterior cerebral Arteries: Right: No aneurysm, occlusion or significant stenosis. Left: No aneurysm, occlusion or significant stenosis. Vertebral Arteries: Right: No aneurysm, occlusion or significant stenosis. Left: No aneurysm, occlusion or significant stenosis. Basilar Artery: No aneurysm, occlusion or significant stenosis. CTA Neck W: Common Carotid: Right: No aneurysm, occlusion or significant stenosis. Left: No aneurysm, occlusion or significant stenosis. Minimal calcific plaque at the common carotid bulb. External Carotid: Right: No aneurysm, occlusion or significant stenosis. Left: No aneurysm, occlusion or significant stenosis. Internal Carotid: Right: No aneurysm, occlusion or significant stenosis. Left: No aneurysm, occlusion or significant stenosis. Vertebral Artery: Right: No aneurysm, occlusion or significant stenosis. Left: No aneurysm, occlusion or significant stenosis. Lung Apices: Normal. Bones: Degenerative disc changes. Soft Tissues: Normal. IMPRESSION: 1. Normal CTA examination of the [place]. 2. Unremarkable CT Head. Mild sinus disease. 3. Minimal plaque at the left common carotid bulb , otherwise normal CTA examination of the neck. RADIATION DOSE DELIVERED: 2,280.2mGy.cm Total DLP DATA REPOSITORY: All CT scans at this facility are submitted to the National Radiology Data Registry (NRDR) Dose Index Registry (DIR) with the [employer] (A[employer]). RADIATION OPTIMIZATION: All CT scans at this facility use at least one of these dose optimization te chniques: automated exposure control; mA and/or kV adjustment per patient size (includes targeted exa ms where dose is matched to clinical indication); or iterative reconstruction.
[2022-02-05 10:05] LABS: Abs Immature Grans 0.02 10^3/uL (0.0-0.06); Absolute Basophil Count 0.02 10^3/uL (0.0-0.2); Absolute Eosinophil Count 0.08 10^3/uL (0.0-0.7); Absolute Lymphocyte Count 0.81 10^3/uL (1.2-3.4); Absolute Monocyte Count 0.53 10^3/uL (0.1-0.8); Absolute Neutrophil Count 4.04 10^3/uL (1.2-6.7); Basophils % 0.4; Eosinophils % 1.5; HCT 41.5 % (40.0-50.0); HGB 13.6 g/dL (13.5-17.5); Immature Grans % 0.4; Lymphocytes % 14.7; MCHC 32.8 % (32.0-36.0); MCV 88.5 fL (80-95); MPV 11.1 fL (8.0-11.0); Monocytes % 9.6; Neutrophils % 73.4; Nucleated RBC 0 %; Platelet Count 152 10^3/uL (130-400); RBC 4.69 10^6/uL (4.36-5.78); RDW 12.6 % (11.8-14.1); RDW-SD 40.9 fL
[2022-02-05 10:26] LABS: ALT 24 U/L (16-63); AST 19 U/L (15-37); Albumin 3.7 g/dL (3.4-5.0); Alkaline Phosphatase 66 U/L (46-116); Anion Gap 6.2 mmol/L (3-11); BUN 11 mg/dL (7-18); Bilirubin, Total 0.9 mg/dL (0.2-1.0); CO2 30.8 mmol/L (21.0-32.0); CREATININE 0.8 mg/dL (0.70-1.30); Chloride 106 mmol/L (98-107); Glucose 118 mg/dL (74-106); Potassium 4.5 mmol/L (3.5-5.1); Sodium 143 mmol/L (136-145); Total Protein 6.8 g/dL (6.4-8.2)
--- NOTE | 2022-02-05 10:30 | RT.EKG_ITS ---
APPROVED REPORT Exam: Resting ECG Reason for Exam: chest pain Patient Location: E HR:76 bpm ECG Measurements Heart Rate 76 AXIS SC 213 P 65 QRSd 133 QRS 72 QT 413 T 56 QTc 466 Conclusion Sinus rhythm...normal P axis, V-rate 60- 99 Borderline prolonged SC interval...SC >212, V-rate 50- 90 Right bundle branch block...QRSd>120, terminal axis(90,270) sinus rhythm at 76, normal axis, no major change from prior, nondiagnostic EKG
[2022-02-05 10:37] LABS: Magnesium 2.1 mg/dL (1.8-2.4); TSH (W/Ref FT4) 0.45 uIU/mL (0.36-3.74); Troponin I < 50 ng/L (<or=60)
[2022-02-05 10:39] LABS: D-Dimer 401 ng/mlFEU (<500)
[2022-02-05] MEDS: Omnipaque 350 MG/ML 100 ML BTL IJ (12:12)
[2022-02-05 13:25] LABS: Troponin I < 50 ng/L (<or=60)
--- NOTE | 2022-02-05 15:26 | NUR.NOTE ---
reviewed chart. I agree with Brennan Lacy, sales person assessment, care and documention.
== END 2022-02-05 15:04 | disposition home or self-care (01) ==
PROVIDERS: Emergency Provider Student in an Organized Health Care Education/Training Program; PCP Family Medicine
DX: R42 Dizziness and giddiness (principal); Z95.0 Presence of cardiac pacemaker; I10 Essential (primary) hypertension; R07.9 Chest pain, unspecified
CPT/HCPCS: 36415; 70496; 70498; 80053; 93005; 99285; 83735; 84443; 84484; 85025; 85379; 93010; 99284; J3490

== ENCOUNTER → 2022-07-18 08:15 | Outpatient (BNVA) | payer MEDICARE, BC, SELFPAY | PROVIDERS: PCP Family Medicine; Referring Provider Family Medicine; Visit Provider Physician Assistant | DX: Z95.0 Presence of cardiac pacemaker (principal); R55 Syncope and collapse | CPT/HCPCS: 93280 ==

== ENCOUNTER 2022-08-29 10:54 | Outpatient (CLI) | payer MEDICARE, BC, SELFPAY ==
[2022-08-29 13:03] LABS: Vitamin B12 1406 pg/mL (193-986)
== END 2022-08-29 10:55 | disposition home or self-care (01) ==
LOC: LOS 10:55
PROVIDERS: PCP Family Medicine; Visit Provider Family Medicine
DX: D64.9 Anemia, unspecified (principal)
CPT/HCPCS: 36415; 82607